=== PATIENT | male | born 1950 | race Caucasian/White ===

== ENCOUNTER 2018-08-26 01:32 | Emergency (ER) | payer MEDICARE, BC ==
[~2018-08-26 01:32] MED LIST: ASPI81TA94 PO; CAR3.125 PO; DABI150C3 PO; DILT360C49 PO
--- NOTE | 2018-08-26 01:38 | ER Report ---
History and Physical Time Seen By MD: 01:38 HPI/ROS CHIEF COMPLAINT: chest pain HISTORY OF PRESENT ILLNESS: This is a 67 year old male. Chest pain in left lateral chest area. Has been since yesterday. May have strained the area picking up heavy objects, but has history of heart disease and wanted to be on the safe side. Has no shortness of breath. Denies cough or fevers. No nausea. Pain does worsen with lifting and with twisting and movement of the area. Nothing else changes the pain. Some intermittent reflux as well. Allergies: Coded Allergies: No Known Drug Allergies (Verified , 08/26/18) Home Meds Reported Medications Carvedilol (CARVEDILOL) 3.125 Mg Tab, 3.125 MG PO BID, TAB TAKE 1 TABLET BY MOUTH TWICE A DAY 08/23/14 Aspirin (ASPIRIN) 81 Mg Tab.chew, 81 MG PO DAILY 09/08/12 Reviewed Nurses Notes: Yes Hx Smoking: No Smoking Status: Never Smoker Hx Substance Use Disorder: No Hx Alcohol Use: No Constitutional Vital Sign - Last 24 Hours 08/26/18 08/26/18 08/26/18 08/26/18 01:35 02:00 02:14 02:15 Temp 97.5 Pulse 64 61 59 Resp 16 9 23 B/P (MAP) 164/105 128/92 (104) 133/90 (104) Pulse Ox 93 92 90 O2 Delivery Room Air 08/26/18 08/26/18 08/26/18 08/26/18 02:30 02:45 02:50 03:00 Pulse 56 57 60 Resp 20 12 23 B/P (MAP) 120/83 (95) 160/103 (122) Pulse Ox 90 91 92 08/26/18 03:05 Pulse 64 Resp 9 Pulse Ox 92 Physical Exam General Appearance: The patient is alert. No acute distress. Eyes: Pupils are equal, round. No pallor, injection or icterus. ENT: Mucous membranes are moist. Respiratory: Lungs are clear to auscultation. Cardiovascular: Regular rate and rhythm. No murmurs, gallops or rubs. Normal capillary refill. No edema. Gastrointestinal: Abdomen is soft and non tender. Nondistended. Normal active bowel sounds. Neurological: Alert and oriented x3. Cranial nerves II through XII show no acute deficits on my exam. No focal neurologic deficits in the extremities. Skin: Warm and dry. No rashes. Musculoskeletal: Has some pain with palpation in the area. No tenderness in palpation of the cervical, thoracic and lumbar spine. DIFFERENTIAL DIAGNOSIS: After history and physical exam, differential diagnosis was considered for chest pain including but not limited to myocardial ischemia, pericarditis pulmonary embolus, chest wall pain, pleural inflammation and pulmonary infectious causes. Medical Decision Making Data Points Result Diagram: 08/26/18 0142 08/26/18 0142 Laboratory Hematology Test 08/26/18 01:42 Red Blood Count 4.79 M/uL (4.00-5.60) Mean Corpuscular Volume 93.7 fL (80.0-96.0) Mean Corpuscular Hemoglobin 32.3 pg (26.0-33.0) Mean Corpuscular Hemoglobin Concent 34.4 g/dL (32.0-36.0) Red Cell Distribution Width 13.0 % (11.5-14.5) Mean Platelet Volume 9.3 fL (7.2-11.1) Neutrophils (%) (Auto) 50.3 % (39.4-72.5) Lymphocytes (%) (Auto) 33.9 % (17.6-49.6) Monocytes (%) (Auto) 9.0 % (4.1-12.4) Eosinophils (%) (Auto) 5.5 % (0.4-6.7) Basophils (%) (Auto) 1.3 % (0.3-1.4) Nucleated RBC Relative Count (auto) 0.0 /100WBC Neutrophils # (Auto) 2.9 K/uL (2.0-7.4) Lymphocytes # (Auto) 2.0 K/uL (1.3-3.6) Monocytes # (Auto) 0.5 K/uL (0.3-1.0) Eosinophils # (Auto) 0.3 K/uL (0.0-0.5) Basophils # (Auto) 0.1 K/uL (0.0-0.1) Nucleated RBC Absolute Count (auto) 0.00 K/uL Sodium Level 139 mmol/L (137-145) Potassium Level 3.8 mmol/L (3.5-5.0) Chloride Level 107 mmol/L (98-107) Carbon Dioxide Level 27 mmol/L (22-30) Blood Urea Nitrogen 26 mg/dl (9-21) Creatinine 0.80 mg/dl (0.66-1.25) Glomerular Filtration Rate Calc > 60.0 Random Glucose 101 mg/dl (75-110) Calcium Level 9.2 mg/dl (8.4-10.2) Total Bilirubin 0.4 mg/dl (0.2-1.3) Aspartate Amino Transf (AST/SGOT) 23 U/L (0-35) Alanine Aminotransferase (ALT/SGPT) 32 U/L (0-56) Alkaline Phosphatase 63 U/L (0-126) Troponin I < 0.012 ng/ml Total Protein 7.0 g/dl (6.3-8.2) Albumin 4.2 g/dl (3.5-5.0) Chemistry Test 08/26/18 01:42 White Blood Count 5.8 k/uL (4.5-11.0) Red Blood Count 4.79 M/uL (4.00-5.60) Hemoglobin 15.5 g/dL (14.0-18.0) Hematocrit 44.9 % (42.0-52.0) Mean Corpuscular Volume 93.7 fL (80.0-96.0) Mean Corpuscular Hemoglobin 32.3 pg (26.0-33.0) Mean Corpuscular Hemoglobin Concent 34.4 g/dL (32.0-36.0) Red Cell Distribution Width 13.0 % (11.5-14.5) Platelet Count 149 K/uL (150-450) Mean Platelet Volume 9.3 fL (7.2-11.1) Neutrophils (%) (Auto) 50.3 % (39.4-72.5) Lymphocytes (%) (Auto) 33.9 % (17.6-49.6) Monocytes (%) (Auto) 9.0 % (4.1-12.4) Eosinophils (%) (Auto) 5.5 % (0.4-6.7) Basophils (%) (Auto) 1.3 % (0.3-1.4) Nucleated RBC Relative Count (auto) 0.0 /100WBC Neutrophils # (Auto) 2.9 K/uL (2.0-7.4) Lymphocytes # (Auto) 2.0 K/uL (1.3-3.6) Monocytes # (Auto) 0.5 K/uL (0.3-1.0) Eosinophils # (Auto) 0.3 K/uL (0.0-0.5) Basophils # (Auto) 0.1 K/uL (0.0-0.1) Nucleated RBC Absolute Count (auto) 0.00 K/uL Glomerular Filtration Rate Calc > 60.0 Calcium Level 9.2 mg/dl (8.4-10.2) Total Bilirubin 0.4 mg/dl (0.2-1.3) Aspartate Amino Transf (AST/SGOT) 23 U/L (0-35) Alanine Aminotransferase (ALT/SGPT) 32 U/L (0-56) Alkaline Phosphatase 63 U/L (0-126) Troponin I < 0.012 ng/ml Total Protein 7.0 g/dl (6.3-8.2) Albumin 4.2 g/dl (3.5-5.0) EKG/Imaging EKG Interpretation 12 lead EKG: Rhythm: Normal sinus rhythm, rate 62 [place]: normal QRS: normal ST segments: normal Imaging CHEST PA LAT HISTORY: Left axillary chest pain. History of myocardial infarction. COMPARISON: 08/23/2014 and studies dating to 12/25/2010. TECHNIQUE: PA and lateral views of the chest. FINDINGS: Pulmonary/pleura: Lungs are clear. There is no pneumothorax or pleural effusion. Cardiomediastinal: Cardiac and mediastinal silhouettes are within normal limits. Bones/soft tissues: No acute osseous abnormality. There is mild degenerative change of the spine. There is stable minimal wedging of T11 and T12. The visible abdomen is normal. IMPRESSION: 1. No acute cardiopulmonary process. Report Dictated By: Kellie Kemp at 08/26/2018 2:29 AM ED Course/Re-evaluation Clinical Indication for ER IV: IV Access ED Course This appears to be chest wall pain. Troponin and other labs negative. EKG without ischemic signs. Chest x-ray negative. Decision to Disposition Date: August 26, 2018 Decision to Disposition Time: 03:07 Depart Departure Latest Vital Signs Vital Signs Date Time Temp Pulse Resp B/P (MAP) Pulse Ox O2 Delivery O2 Flow Rate FiO2 08/26/18 03:05 64 9 92 08/26/18 03:00 160/103 (122) 08/26/18 01:35 97.5 Room Air Impression: Primary Impression: Chest wall pain Condition: Improved Disposition: HOME OR SELF-CARE Referrals: PADILLA MEDINA MD (PCP) Patient Instructions: Chest Wall Pain (ED) ERMA MULLEN MD August 26, 2018 01:38
[2018-08-26] MEDS ORDERED: ASPIRIN 81 MG CHEW PO ONE (01:40)
--- NOTE | 2018-08-26 01:48 | EKG ---
FACILITY: [facility] PATIENT NAME: MIRNA CARY : [id number] MR: [id number] V: [id number] EXAM DATE: ORDERING PHYSICIAN: ERMA MULLEN TECHNOLOGIST: DEMI Jones Reason : CP Blood Pressure : / mmHG Vent. Rate : 062 BPM Atrial Rate : 062 BPM P-R Int : 170 ms QRS Dur : 096 ms QT Int : 396 ms P-R-T Axes : 041 041 043 degrees QTc Int : 401 ms Normal sinus rhythm Normal ECG When compared with ECG of 23-AUG-2014 18:59, No significant change was found Confirmed by PADILLA BLANC ([id number] on 08/26/2018 6:34:43 AM Referred By: PAZ Confirmed By:PADILLA BLANC
[2018-08-26 01:58] LABS: PLATELET COUNT, AUTOMATED 149 K/uL (150-450)
--- NOTE | 2018-08-26 02:34 | RADIOLOGY IMAGING REPORT ---
FACILITY: [facility] PATIENT NAME: Wes Velásquez : 1950 MR: [id number] V: [id number] EXAM DATE: ORDERING PHYSICIAN: ERMA MULLEN TECHNOLOGIST: Location: [facility] [place] Patient: Wes Velásquez : 1950 Visit/Account:[id number] Date of Sevice: 08/26/2018 CHEST PA LAT HISTORY: Left axillary chest pain. History of myocardial infarction. COMPARISON: 08/23/2014 and studies dating to 12/25/2010. TECHNIQUE: PA and lateral views of the chest. FINDINGS: Pulmonary/pleura: Lungs are clear. There is no pneumothorax or pleural effusion. Cardiomediastinal: Cardiac and mediastinal silhouettes are within normal limits. Bones/soft tissues: No acute osseous abnormality. There is mild degenerative change of the spine. The re is stable minimal wedging of T11 and T12. The visible abdomen is normal. IMPRESSION: 1. No acute cardiopulmonary process. Report Dictated By: Kellie Kemp at 08/26/2018 2:29 AM Report E-Signed By: Kellie Kemp at 08/26/2018 2:30 AM [id number]
[2018-08-26 03:00] VITALS: BP 160/103
== END 2018-08-26 03:15 | disposition home or self-care (01) ==
LOC: ER 02:00
DX: R07.89 Other chest pain (principal)
CPT/HCPCS: 71046; 84484; 85025; 93005; 99284; A9270; 82040; 82247; 82310; 82374; 82435; 82565; 82947; 84075; 84132; 84155; 84295; 84450; 84460; 84520